=== PATIENT | male | born 1935 | race Caucasian/White ===

== ENCOUNTER 2019-09-05 14:40 | Outpatient (CLI) | payer MEDICARE, SELFPAY ==
--- NOTE | ~2019-09-05 | XR_ITS ---
EXAMINATION: XR hip BI wo pelvis EXAM DATE: 09/05/2019 15:29 INDICATION: Bilateral hip pain. No known recent injury provided at this time. TECHNIQUE: Each hip imaged independently (separate right and also left hip) crosstable lateral and ' frog-leg' and frontal projections for interpretation. There are no prior studies for comparison. FINDINGS: No radiographic evidence of hip avascular necrosis. There is mild symmetric bilateral hip primary osteoarthritis. There are no acute fractures or dislocations identified. There is no subcuta neous gas. Phleboliths. There are no radiopaque foreign bodies. IMPRESSION: Mild symmetric bilateral hip osteoarthritis. Reviewed, dictated and finalized at location A. CLUB SAFETY PROGRAM COORDINATOR
--- NOTE | ~2019-09-05 | XR_ITS ---
EXAMINATION: XR lumbar spine 6V w bending EXAM DATE: 09/05/2019 15:29 INDICATION: Low back and bilateral hip pain. TECHNIQUE: Lumber spine frontal, lateral, bilateral oblique projections. Coned down frontal and lat eral L5-S1 lumbar projections for interpretation. Additional lateral flexion and lateral extension p rojections obtained. There are no prior studies for comparison. FINDINGS: There is 4 mm anterolisthesis L4 on L5 on the lateral extension projection, increases to 7 mm on the flexion projection. Mild to moderate loss of this disc height. There is moderate to severe loss of the L3-4 disc height. Moderate disc disease L2-3 and mild at the other thoracolumbar levels. There is moderate to severe lumbar facet arthropathy. There is aortic arterial sclerosis. Mild lumbar levoscoliosis. Sacrum, sacroiliac joints, sacral arcuate lines are intact. Paraspinal soft tissue is unremarkable. IMPRESSION: 1. L4-5 grade 1 anterolisthesis, increase in subluxation on flexion. 2. Moderate to severe lumbar facet arthropathy and L3-4 disc disease. Reviewed, dictated and finalized at location A. COUNSELOR
== END 2019-09-05 14:41 | disposition home or self-care (01) ==
LOC: ANHIMG 14:50
PROVIDERS: PCP Family Medicine; Visit Provider Family Medicine
DX: G89.29 Other chronic pain (principal); M16.0 Bilateral primary osteoarthritis of hip; M51.36 Other intervertebral disc degeneration, lumbar region
CPT/HCPCS: 72114; 73521

== ENCOUNTER 2019-09-11 11:59 | Outpatient (CLI) | payer MEDICARE, SELFPAY ==
--- NOTE | ~2019-09-11 | XR_ITS ---
XR abdomen/kub 1V 09/11/2019 12:27 Indication: Right ureteral stone post lithotripsy. Procedure: KUB Comparison: Comparison to multiple prior studies sequentially, with oldest reviewed study dated 03/26. Findings: Interval passage of right ureteral stones. There are left renal stones. There are pelvic ph leboliths without significant change. Bowel gas pattern nonobstructive. Moderate colonic fecal loadin g. Moderate lumbar spondylosis with levoscoliosis. Impression: 1: Interval resolution of distal right ureteral stones. 2: Left nephrolithiasis. Reviewed, dictated and finalized at location A. Impression: 1: Interval resolution of distal right ureteral stones. 2: Left nephrolithiasis.
== END 2019-09-11 12:00 | disposition home or self-care (01) ==
LOC: ANHIMG 12:08
PROVIDERS: PCP Family Medicine; Visit Provider Urology
DX: N20.0 Calculus of kidney (principal)
CPT/HCPCS: 74018

== ENCOUNTER 2019-10-10 11:21 | Outpatient (CLI) | payer MEDICARE, SELFPAY ==
--- NOTE | ~2019-10-10 | XR_ITS ---
EXAMINATION: XR lumbar spine 6V w bending DATE: 10/10/2019 11:50 INDICATION: Low back pain. TECHNIQUE: 7 views of lumbar spine including flexion and extension views were obtained. COMPARISON: Lumbar spine radiographs 09/05/2019, CT abdomen and pelvis 03/26/2019 FINDINGS: There is 12 degrees levoscoliosis of lumbar spine. There is 4 mm anterolisthesis of L4 on L 5. There is no abnormal motion with flexion or extension. There is mild chronic anterior wedging of m ultiple thoracic vertebral bodies.. There is severely decreased disc height at L3-L4 and moderately d ecreased disc height at L2-L3 and L4-L5. There is multilevel facet joint osteoarthritis, severe on th e right at L2-L3 and L3-L4, left from L2-L3 through L5-S1. IMPRESSION: 1. Severe lumbar spondylosis. 2. Lumbar levoscoliosis. Reviewed, dictated and finalized at location A.
== END 2019-10-10 11:22 | disposition home or self-care (01) ==
PROVIDERS: PCP Family Medicine; Visit Provider Family Medicine
DX: M54.5 Low back pain (principal); M62.838 Other muscle spasm; M47.896 Other spondylosis, lumbar region
CPT/HCPCS: 72114

== ENCOUNTER 2019-10-17 11:31 | Outpatient (CLI) | payer MEDICARE, SELFPAY ==
--- NOTE | ~2019-10-17 | MR_ITS ---
EXAMINATION: MR lumbar spine wo con DATE: 10/17/2019 12:29 INDICATION: Low back pain. TECHNIQUE: Magnetic resonance imaging (MRI) of the lumbar spine was performed without intravenous con trast. Sequences included sagittal T2-weighted FSE, sagittal T2-weighted FS FSE, sagittal T1-weighted FSE, and axial T2-weighted FSE. COMPARISON: Lumbar spine radiographs 10/10/2019 FINDINGS: There is 11 degrees levoscoliosis of lumbar spine. There is 3 mm anterolisthesis of L4 on L 5. There are Schmorl's nodes at most levels. There is mildly decreased disc height at L1-L2, moderate ly decreased disc height at L2-L3, severely decreased disc height at L3-L4, and moderately decreased disc height at L4-L5. The distal spinal cord signal intensity is normal. The conus medullaris is at T 12-L1. The following disc levels are specifically discussed: L1-L2: The disc is mildly bulging. There is mild bilateral facet joint osteoarthritis. There is mild bilateral neural foraminal stenosis. There is mild central canal stenosis. L2-L3: The disc is bulging. There is severe bilateral facet joint osteoarthritis. There is mild bilat eral neural foraminal stenosis. There is mild central canal stenosis. L3-L4: The disc is bulging. There is severe bilateral facet joint osteoarthritis. There is moderate r ight and mild left neural foraminal stenosis. There is mild central canal stenosis. L4-L5: The disc is bulging. There is severe bilateral facet joint osteoarthritis. There is moderate b ilateral neural foraminal stenosis. There is moderate central canal stenosis. L5-S1: The disc is bulging. There is severe bilateral facet joint osteoarthritis. There is mild bilat eral neural foraminal stenosis. There is mild central canal stenosis. IMPRESSION: 1. Severe lumbar spondylosis. 2. Lumbar levoscoliosis. Reviewed, dictated and finalized at location A.
== END 2019-10-17 11:32 | disposition home or self-care (01) ==
PROVIDERS: PCP Family Medicine; Visit Provider Family Medicine
DX: M54.5 Low back pain (principal); M47.816 Spondylosis without myelopathy or radiculopathy, lumbar region; M41.86 Other forms of scoliosis, lumbar region
CPT/HCPCS: 72148

== ENCOUNTER 2019-11-07 10:22 | Outpatient (CLI) | payer MEDICARE, SELFPAY ==
--- NOTE | ~2019-11-07 | XR_ITS ---
XR abdomen/kub 1V 11/07/2019 10:40 Indication: Right ureteral stone Procedure: KUB Comparison: Comparison to multiple prior studies sequentially, with oldest reviewed study dated 01/2019. Findings: There is a punctate calcification in the right pelvis not seen on prior examination, suspic ious for 2 mm distal ureteral stone. There are left renal stones. There are multiple pelvic phlebolit hs. Bowel gas pattern is nonobstructive. Levoscoliosis centered at L3-4. Moderate lumbar spondylosis. Impression: 1: Suspected 2 mm distal right ureteral stone. Consider correlation with CT 2: Left nephrolithiasis. Reviewed, dictated and finalized at location A. Impression: 1: Suspected 2 mm distal right ureteral stone. Consider correlation with CT 2: Left nephrolithiasis.
== END 2019-11-07 10:23 | disposition home or self-care (01) ==
LOC: ANHIMG 10:25
PROVIDERS: PCP Family Medicine; Visit Provider Urology
DX: N20.1 Calculus of ureter (principal); N20.0 Calculus of kidney
CPT/HCPCS: 74018

== ENCOUNTER 2020-03-16 11:52 | Outpatient (CLI) | payer MEDICARE, SELFPAY ==
--- NOTE | ~2020-03-16 | XR_ITS ---
XR abdomen/kub 1V 03/16/2020 12:23 Indication: Right ureteral stone. Recent lithotripsy. Procedure: KUB Comparison: 06/04/2019 Findings: Bowel gas pattern is nonobstructive. There are left renal stones. There are pelvic phleboli ths. Moderate lumbar spondylosis with levoscoliosis. Impression: 1: Left nephrolithiasis. Reviewed, dictated and finalized at location B. Impression: 1: Left nephrolithiasis.
== END 2020-03-16 11:53 | disposition home or self-care (01) ==
LOC: ANHIMG 12:02
PROVIDERS: PCP Family Medicine; Visit Provider Urology
DX: N20.0 Calculus of kidney (principal)
CPT/HCPCS: 74018

== ENCOUNTER → 2020-11-06 00:29 | Outpatient (CLI) | payer MEDICARE, SELFPAY ==
[2020-11-06 18:42] LABS: SARS-CoV-2 RNA PCR Negative
== END ==
PROVIDERS: PCP Family Medicine; Visit Provider Specialist
DX: Z01.812 Encounter for preprocedural laboratory examination (principal); Z20.822 Contact with and (suspected) exposure to COVID-19
CPT/HCPCS: C9803; U0003; U0005

== ENCOUNTER 2020-11-09 00:56 | Day surgery (SDC) | payer MEDICARE, SELFPAY ==
[2020-11-06 14:26] VITALS: BMI 28.1
[2020-11-09] VITALS (22 sets, daily range): BP systolic 134–182; BP diastolic 49–74; PULSE 30–69; RESP 10–20; TEMP 36.5–36.6; O2SAT 97–100; BMI 28.1
--- NOTE | 2020-11-09 07:33 | ECG_ITS ---
Measurements Intervals [place] Rate: 28 P: [place]: 0 QRS: -47 QRSD: 170 T: -11 QT: 494 QTc: 341 Interpretive Statements SINUS BRADYCARDIA WITH 2ND DEGREE AV BLOCK, MOBITZ TYPE II RIGHT BUNDLE BRANCH BLOCK LEFT ANTERIOR FASCICULAR BLOCK ABNORMAL ECG Electronically Signed On 11-09-2020 8:18:20 CDT by Nii Dunbar D.O.
[2020-11-09 07:37] LABS: Basophils Percent Auto 0.4 % (0.2-1.2); Eosinophils Absolute Auto 0.2 K/mm3 (0-0.3); Eosinophils Percent Auto 3.6 % (0-4.4); Hematocrit 41.3 % (42.0-52.0); Hemoglobin 13.9 g/dL (14.0-18.0); Immature Granulocyte Absolute 0.03 K/mm3 (0.00-0.031); Immature Granulocyte Percent A 0.6 % (0-0.5); Lymphocytes Absolute Auto 1.47 K/mm3 (0.9-3.2); Lymphocytes Percent Auto 29.1 % (18.3-44.2); Mean Corpuscular HGB Conc 33.7 g/dl (32-36); Mean Corpuscular Hemoglobin 30.5 pg (26-34); Mean Corpuscular Volume 90.8 fl (80-100); Mean Platelet Volume 10.4 fl (7.4-10.4); Monocytes Absolute Auto 0.5 K/mm3 (0.1-0.6); Monocytes Percent Auto 8.9 % (2.6-8.5); Neutrophils Absolute Auto 2.9 K/mm3 (1.3-6.7); Neutrophils Percent Auto 57.4 % (45.5-73.1); Platelet Count Result 204 k/mm3 (150-375); Red Blood Count 4.55 M/mm3 (4.6-6.20); Red Cell Distribution Width 12.9 % (11.5-14.5); White Blood Count 5.1 K/mm3 (4.5-10.0)
[2020-11-09 07:46] LABS: Anion Gap 3 mmol/L (8-16); Blood Urea Nitrogen 19 mg/dL (9-20); Calcium 9.2 mg/dL (8.4-10.2); Carbon Dioxide 30 mmol/L (22-30); Chloride 105 mmol/L (98-107); Estimated CRCL calculation 44 ml/min; Estimated Glomerular Filt Rate > 60; Glucose 95 mg/dL (75-110); Sodium 138 mmol/L (137-145)
[2020-11-09 07:48] LABS: INR 0.9; Prothrombin Time 13.1 Seconds (11.1-14.7)
--- NOTE | 2020-11-09 08:51 | WPDMODSED ---
Moderate Sedation Note-Pt Data Patient Data Diagnosis: Coronary artery disease with previous PCI exertional fatigue second-degree AV block abnormal stress test Present Complaint: this is an 85-year-old man with coronary disease previous PCI who is reporting symptoms of decreasing exertional tolerance. A nuclear stress test was abnormal suggesting evidence of anteroseptal infarction which has not occurred in the past. Follow-up angiogram has been recommended for this reason. He is in second-degree AV block with 2-1 conduction. Procedure to be performed/Plan: Coronary angiogram left ventriculogram Allergies Allergy/AdvReac Type Severity Reaction Status Date / Time Penicillins Allergy Severe Swelling Verified 10/08/19 14:05 Home Medications Medication Instructions Recorded Confirmed Type aspirin 325 mg PO DAILY 05/02/19 10/08/19 History finasteride 5 mg PO DAILY 05/02/19 10/08/19 History zinc 0.5 mg PO DAILY 05/02/19 10/08/19 History hydrocodone-acetaminophen [[place]] 1 - 2 tablet PO Q8H PRN #20 tablet 05/10/19 10/08/19 Rx ferrous sulfate 325 mg (65 mg 325 mg PO DAILY 10/08/19 10/08/19 History iron) tablet atorvastatin 40 mg tablet 40 mg PO DAILY #90 tablet 06/29/20 Rx amlodipine 2.5 mg tablet 2.5 mg PO BID #180 tablet 07/29/20 Rx furosemide 20 mg tablet 20 mg PO DAILY #90 tablet 08/24/20 Rx diazepam 2 mg tablet 2 mg PO .QHS PRN #30 tablet 09/11/20 Rx Current Medications: Active Medications Sodium Chloride (Normal Saline Iv) 500 mls @ 100 mls/hr IV CONT .Q5H OTIS Sedation/Anesthesia: No previous sedation/anesthesia problems (including family history). [facility] Past Medical History Medical History (Updated 10/15/19 @ 15:53 by Malcolm Hernandez MD) CPAP (continuous positive airway pressure) dependence Hamstring tightness HTN (hypertension) Hyperlipidemia Leg muscle spasm Lumbar spondylosis NIKKI (obstructive sleep apnea) Renal stones Surgical History Surgical History History of coronary artery stent placement Family History Family History Father Family history of cardiac disorder Social History Social History Smoking status: Never smoker Alcohol intake: current Substance use: never Substance use type: does not use Living arrangements: with family Gender identity (if verbalized by the patient): Male Spiritual care concerns: No Mod Sed Physical Exam Physical Exam Pre Procedural Exam: Normal: Appearance, Throat, Airway, Lungs, Heart Size, Heart Rhythm, Neuro Exam and Extremities and Variation: Heart Rate ( bradycardic) Hours since solid foods: 12 Hours since liquid intake: 12 Internal Medicine - PN: Obj Da Vital Signs Vital Signs: Vital Signs - 24 hr 11/09/20 07:27 Pulse Rate 32 L Respiratory Rate 12 Blood Pressure 160/58 H Pulse Oximetry 100 Meds/Results Medications: Active Medications Generic Name Dose Route Start Last Admin Trade Name Freq PRN Reason Stop Dose Admin Sodium Chloride 500 mls @ 100 mls/hr 11/09/20 07:00 Normal Saline Iv IV CONT .Q5H [facility] Labs CBC & Chem 7: 11/09/20 07:29 11/09/20 07:29 Labs: Laboratory Results - last 24 hr 11/09/20 11/09/20 11/09/20 07:29 07:29 07:29 WBC 5.1 RBC 4.55 L Hgb 13.9 L Hct 41.3 L MCV 90.8 MCH 30.5 MCHC 33.7 RDW 12.9 Plt Count 204 MPV 10.4 Immature Gran % (Auto) 0.6 H Neut % (Auto) 57.4 Lymph % (Auto) 29.1 Person % (Auto) 8.9 H Eos % (Auto) 3.6 Baso % (Auto) 0.4 Lymph # (Auto) 1.47 Person # (Auto) 0.5 Eos # (Auto) 0.2 Baso # (Auto) 0.0 Abs Immat Gran (auto) 0.03 Absolute Neuts (auto) 2.9 Absolute Nucleated RBC 0.0 Nucleated RBC % 0.0 PT 13.1 INR 0.9 Sodium 138 Potassium 4.0 Chloride 105 Carbon Dioxide 30
--- NOTE | 2020-11-09 09:32 | WPDCARDPROC ---
Cardiac Cath Procedure Note Date of procedure:: 11/09/20 Performing physician:: Be Mcwilliams MD Indication:: Abnormal stress test previous coronary stent second-degree AV block Brief clinical history:: this is an 85-year-old man with coronary disease previous stenting of the proximal LAD as well as of the proximal circumflex. He has left coronary dominant circulation. He presented to the office recently reporting symptoms of exertional fatigue. Stress testing suggests evidence of previous anteroapical infarction which has not been known to occur in the past. In addition to this he is bradycardic and second-degree AV block initially Mobitz type 1 currently appears to have Mobitz type 2. Procedure Procedure performed:: Coronary angiography left ventriculography Sedation/Medication given:: no Sedation case start time 9:05 a.m. case end time 9:29 a.m. Access site:: right femoral artery Estimated blood loss:: 10-15 cc Procedure note:: patient was brought to the cardiac catheterization lab where the right femoral triangle was prepared and draped in the usual fashion. Anesthesia was provided with 1% lidocaine infiltrated locally. Using the modified Seldinger technique the right femoral artery was punctured and a 5 Nigerien vascular sheath was placed. After this left heart catheterization was carried out. I used a 5 Nigerien FL4 catheter to engage and inject the left coronary artery. I then used a 5 [place] JR4 catheter to engage and inject the right coronary artery. A 5 Nigerien angled pigtail catheter was used to measure left-sided hemodynamics and injected LV g in the DONOVAN projection. The cine angiograms were then reviewed the case was terminated the patient was taken to the holding area for manual sheath removal. Procedure was uncomplicated he left the cathode washer with no evidence of a groin hematoma. Findings:: hemodynamics: Central aortic pressure is 164 over 52 left ventricle 164 over to end-diastolic 18. No gradient seen on pullback across the aortic valve. Left ventricle: The LV is normal in size there is mild global hypocontractility global ejection fraction is estimated to be 40-45%. The left main coronary artery is short medium in caliber and patent the left anterior descending is a large caliber vessel extending down to around the apex. At the ostium the LAD has a 99% stenosis. After this there is visible stent material proximal LAD with modest loss of lumen but no functionally significant lesion is seen in the stent itself. The high-grade ostial lesion appears to be proximal to the stent material. The circumflex is a large caliber vessel which is dominant to the posterior circulation circumflex proximally has a stent visible with modest 30% stenosis in this segment. The 1st OM branch has a 99% lesion and is a medium-sized vessel. Conclusion:: 1. Severe 2 vessel coronary artery disease with subtotal ostial stenosis of the LAD the proximal margin of previously deployed stent material and high-grade 99% stenosis in the 1st OM branch of the circumflex. Left coronary artery is dominant and proximal circumflex stent has modest loss of lumen. 2. Very mildly reduced left ventricular systolic function 3. second-degree AV block appears to be Mobitz type 2 now with heart rate of 30 beats per minute and no syncopal symptoms. Be Mcwilliams MD [facility]
--- NOTE | 2020-11-09 15:23 | SUR.PHASEII ---
Patient up to chair, no signs of bleeding or hematoma, will continue to monitor, BP taken prior to ambulating, patient states a little dizzy but no more than usual.
[2020-11-09 18:40] LABS: Basophils Percent Auto 0.4 % (0.2-1.2); Eosinophils Absolute Auto 0.2 K/mm3 (0-0.3); Eosinophils Percent Auto 2.8 % (0-4.4); Hematocrit 41.3 % (42.0-52.0); Hemoglobin 13.7 g/dL (14.0-18.0); Immature Granulocyte Absolute 0.03 K/mm3 (0.00-0.031); Immature Granulocyte Percent A 0.5 % (0-0.5); Lymphocytes Absolute Auto 1.31 K/mm3 (0.9-3.2); Lymphocytes Percent Auto 22.9 % (18.3-44.2); Mean Corpuscular HGB Conc 33.2 g/dl (32-36); Mean Corpuscular Hemoglobin 30.3 pg (26-34); Mean Corpuscular Volume 91.4 fl (80-100); Mean Platelet Volume 10.4 fl (7.4-10.4); Monocytes Absolute Auto 0.4 K/mm3 (0.1-0.6); Monocytes Percent Auto 7.5 % (2.6-8.5); Neutrophils Absolute Auto 3.8 K/mm3 (1.3-6.7); Neutrophils Percent Auto 65.9 % (45.5-73.1); Platelet Count Result 214 k/mm3 (150-375); Red Blood Count 4.52 M/mm3 (4.6-6.20); White Blood Count 5.7 K/mm3 (4.5-10.0)
[2020-11-09] MEDS: HEPARIN SOD/D5W 100 UNITS/ML 25,000 UNITS/250 ML BAG 8 UNITS IV CONT (18:50)
[2020-11-09 19:01] LABS: Prothrombin Time 13.7 Seconds (11.1-14.7)
[2020-11-09 19:02] LABS: Partial Thromboplastin Time 31.2 SECONDS (22.3-36.8)
--- NOTE | 2020-11-09 19:11 | PC.NURSE ---
Per Dr grullon. Ok to turn low heart rate alarm parameters to 25
--- NOTE | 2020-11-09 21:27 | PC.NURSE ---
This patient, Rainer Starks, was admitted to IMU Room 203-01 at approximately 1600. Patient/family oriented to hospital policies and general routines including ID bracelet, bed and alarms, visiting hours, pain management, procedures, bathroom and other care routines, personal items, smoking policy, room service/diet, and visiting hours. Information on how to activate the Rapid Response Team has been discussed. Patient/Family are encouraged to report perceived risks to care and to ask questions if they do not understand what they are told or what they should do. Admission assessment done at 2127 by Sivan Gutierrez RN
[2020-11-10] VITALS: PULSE 25; O2SAT 98
[2020-11-10 01:26] LABS: Partial Thromboplastin Time 55.3 SECONDS (22.3-36.8)
--- NOTE | 2020-11-10 01:54 | PC.NURSE ---
Heparin infusion started by Vicky Mccollum RN on 11/09/2020 At 1850.
[2020-11-10] MEDS: HEPARIN SODIUM 5,000 UNITS/ML VIAL 3000 UNITS IV PUSH (01:59)
[2020-11-10 02:00] VITALS: PULSE 35
[2020-11-10 03:57] VITALS: BP 160/60; PULSE 31; RESP 18; TEMP 36.2; O2SAT 97
--- NOTE | 2020-11-10 04:55 | PC.NURSE ---
Patient was transferred to [facility], room 7355 on 11/10/20 at 0420.
== END 2020-11-10 04:20 | disposition short-term general hospital (02) ==
LOC: ANHCATHLAB 07:07 → ANHIMU 16:34
PROVIDERS: PCP Family Medicine; Visit Provider Specialist
PROC: 4A023N7 Measurement of Cardiac Sampling and Pressure, Left Heart, Percutaneous Approach (ICD-10-PCS; CPT 93452; principal; 2020-11-09 08:30)
DX: I25.10 Atherosclerotic heart disease of native coronary artery without angina pectoris (principal); R94.39 Abnormal result of other cardiovascular function study; I44.1 Atrioventricular block, second degree; Z95.5 Presence of coronary angioplasty implant and graft; I10 Essential (primary) hypertension; E78.5 Hyperlipidemia, unspecified; G47.33 Obstructive sleep apnea (adult) (pediatric); M47.816 Spondylosis without myelopathy or radiculopathy, lumbar region
CPT/HCPCS: 36415; 80048; 85025; 85610; 85730; 93005; 93458; C1887; C1894; J0461; J1644; J2250; J3010; J7030; J7040

== ENCOUNTER → 2020-12-11 03:37 | Outpatient (CLI) | payer MEDICARE, SELFPAY ==
[2020-12-11 19:50] LABS: SARS-CoV-2 RNA PCR Negative
== END ==
PROVIDERS: PCP Family Medicine; Visit Provider Specialist
DX: Z01.812 Encounter for preprocedural laboratory examination (principal); Z20.822 Contact with and (suspected) exposure to COVID-19
CPT/HCPCS: C9803; U0003; U0005

== ENCOUNTER 2020-12-14 00:42 | Day surgery (SDC) | payer MEDICARE, SELFPAY ==
[2020-12-11 16:13] VITALS: BMI 27.4
--- NOTE | 2020-12-14 07:22 | ECG_ITS ---
Measurements Intervals [place] Rate: 80 P: [place]: 0 QRS: 92 QRSD: 153 T: 128 QT: 436 QTc: 503 Interpretive Statements ELECTRONIC VENTRICULAR PACEMAKER UNDERLYING ATRIAL FLUTTER BASELINE ARTIFACT- III, AVL NO FURTHER INTERPRETATION IS POSSIBLE ABNORMAL ECG Electronically Signed On 12-14-2020 7:40:02 CDT by Nii Dunbar D.O.
[2020-12-14 07:28] VITALS: BP 132/89; PULSE 81; RESP 23; TEMP 35.7; O2SAT 100
[2020-12-14 07:54] LABS: Anion Gap 6 mmol/L (8-16); Blood Urea Nitrogen 17 mg/dL (9-20); Calcium 9.1 mg/dL (8.4-10.2); Carbon Dioxide 26 mmol/L (22-30); Chloride 108 mmol/L (98-107); Estimated CRCL calculation 44 ml/min; Estimated Glomerular Filt Rate > 60; Glucose 97 mg/dL (75-110); Magnesium 1.9 mg/dL (1.6-2.3); Potassium 4.1 mmol/L (3.4-5.0); Sodium 140 mmol/L (137-145)
--- NOTE | 2020-12-14 08:20 | WPDMODSED ---
Moderate Sedation Note-Pt Data Patient Data Diagnosis: Atrial flutter following coronary bypass grafting Recent pacemaker implantation in surgery because of AV block Present Complaint: No complaints Procedure to be performed/Plan: DC cardioversion Allergies Allergy/AdvReac Type Severity Reaction Status Date / Time Penicillins Allergy Severe Swelling Verified 11/25/20 10:36 Home Medications Medication Instructions Recorded Confirmed Type finasteride 5 mg PO DAILY 05/02/19 12/14/20 History furosemide 20 mg tablet 20 mg PO DAILY #90 tablet 08/24/20 12/14/20 Rx aspirin [Adult Low Dose Aspirin] 81 mg PO DAILY 11/09/20 12/14/20 History tamsulosin 0.4 mg PO HS 11/09/20 12/14/20 History sennosides 8.6 mg-docusate sodium 1 tab-cap PO QHS #30 tablet 11/23/20 12/14/20 Rx 50 mg tablet acetaminophen 325 mg tablet 650 mg PO Q6H PRN 11/25/20 12/14/20 History atorvastatin 40 mg tablet 80 mg PO DAILY tablet 11/25/20 12/14/20 History metoprolol succinate 25 mg 25 mg PO BID 11/25/20 12/14/20 History tablet,extended release 24 hr oxycodone 5 mg tablet 5 mg PO Q4H PRN 11/25/20 12/14/20 History potassium chloride 20 mEq 20 meq PO DAILY 11/25/20 12/14/20 History tablet,extended release multivitamin with folic acid 1 tablet PO DAILY 12/14/20 12/14/20 History Current Medications: Active Medications Sodium Chloride (Normal Saline Iv) 1,000 mls @ 30 mls/hr IV CONT .Q24H OTIS Sedation/Anesthesia: No previous sedation/anesthesia problems (including family history). [facility] Past Medical History Medical History BMI 27.0-27.9,adult CPAP (continuous positive airway pressure) dependence Hamstring tightness HTN (hypertension) Hyperlipidemia Leg muscle spasm Lumbar spondylosis NIKKI (obstructive sleep apnea) Renal stones Surgical History Surgical History History of coronary artery stent placement Family History Family History Father Family history of cardiac disorder Social History Social History Smoking status: Never smoker Second hand tobacco smoke exposure: No Alcohol intake: former Drinks per week: 1 Substance use: never Substance use type: does not use Living arrangements: with family Gender identity (if verbalized by the patient): Male Spiritual care concerns: No Mod Sed Physical Exam Physical Exam Pre Procedural Exam: Normal: Appearance, Neck, Throat, Airway, Lungs, Heart Size, Heart Rate, Heart Rhythm, Neuro Exam and Extremities Hours since solid foods: 12 Hours since liquid intake: 12 Internal Medicine - PN: Obj Da Vital Signs Vital Signs: Vital Signs - 24 hr 12/14/20 07:28 Temperature 35.7 C L Pulse Rate 81 Respiratory Rate 23 H Blood Pressure 132/89 Pulse Oximetry 100 Meds/Results Medications: Active Medications Generic Name Dose Route Start Last Admin Trade Name Freq PRN Reason Stop Dose Admin Sodium Chloride 1,000 mls @ 30 mls/hr 12/14/20 07:25 Normal Saline Iv IV CONT .Q24H OTIS Labs CBC & Chem 7: 12/14/20 07:40 Labs: Laboratory Results - last 24 hr 12/14/20 07:40 Sodium 140 Potassium 4.1 Chloride 108 H Carbon Dioxide 26 Anion Gap 6 L BUN 17 Creatinine 1.10 Estim Creat Clear Calc 44 Estimated GFR > 60 Glucose 97 Calcium 9.1 Magnesium 1.9 ASA Classification/Sedation ASA Classification/Sedation ASA Class: II Emergent: No Risks: Risks, benefits and alternatives explained and patient/family accepted plan for sedation. Patient re-evaluated immediately prior to sedation.
[2020-12-14 08:30] VITALS: BP 151/84; PULSE 80; RESP 20; O2SAT 100
--- NOTE | 2020-12-14 08:34 | P.PCNCC_ITS ---
Cardiac Cath Procedure Note Date of procedure:: 12/14/20 Performing physician:: Be Mcwilliams MD Indication:: Persistent atrial flutter Brief clinical history:: This is an 85-year-old man who recently underwent bypass grafting and implantation of a dual-chamber pacemaker for treatment of high-grade AV block and severe 2 vessel coronary artery disease with left dominant circulation. In the outpatient setting it was noted that he has developed atrial flutter and persistent fashion be. He is anticoagulated with apixaban. An attempt at restoring sinus rhythm electrically has been scheduled for this morning. Procedure Procedure performed:: DC cardioversion Sedation/Medication given:: Propofol 40 mg IV push Estimated blood loss:: No blood loss Procedure note:: Patient was brought to the cathode washer holding area in the postabsorptive state. The defibrillator patches were placed in the AP position. The device was synchronized at 200 joules. He was then bolus of propofol 1 dose of 40 mg provided excellent sedation he was then cardioverted with 200 joules x1 shock resulting in termination of atrial flutter and AV sequential pacing. Findings:: As above Conclusion:: Successful, uncomplicated DC cardioversion terminating atrial flutter and resulting in AV sequential paced rhythm in this patient also with history of AV node dysfunction and implantation of permanent dual-chamber pacemaker recently during his bypass operation Be Mcwliliams MD [facility]
[2020-12-14 08:35] VITALS: BP 121/73; PULSE 80; RESP 20; O2SAT 100
--- NOTE | 2020-12-14 08:35 | ECG_ITS ---
Measurements Intervals [place] Rate: 80 P: 108 MT: 177 QRS: 91 QRSD: 147 T: 108 QT: 426 QTc: 491 Interpretive Statements ELECTRONIC ATRIAL PACEMAKER ELECTRONIC VENTRICULAR PACEMAKER NO FURTHER INTERPRETATION IS POSSIBLE ATYPICAL ECG Electronically Signed On 12-14-2020 9:10:42 CDT by Nii Dunbar D.O.
[2020-12-14 08:45] VITALS: BP 121/73; PULSE 80; RESP 20; TEMP 35.7; O2SAT 100
[2020-12-14 09:00] VITALS: BP 126/71; PULSE 80; RESP 20; O2SAT 100
[2020-12-14 09:15] VITALS: BP 145/82; PULSE 80; RESP 20; TEMP 35.7; O2SAT 100
== END 2020-12-14 09:33 | disposition home or self-care (01) ==
PROVIDERS: PCP Family Medicine; Visit Provider Specialist
PROC: 5A2204Z Restoration of Cardiac Rhythm, Single (ICD-10-PCS; principal; 2020-12-14 08:30)
DX: I48.19 Other persistent atrial fibrillation (principal); Z79.82 Long term (current) use of aspirin; Z95.1 Presence of aortocoronary bypass graft; Z95.5 Presence of coronary angioplasty implant and graft; Z95.0 Presence of cardiac pacemaker; Z79.01 Long term (current) use of anticoagulants
CPT/HCPCS: 36415; 80048; 83735; 92960; 93005; J2704; J7030

== ENCOUNTER 2021-06-09 15:43 | Outpatient (CLI) | payer MEDICARE, SELFPAY ==
--- NOTE | ~2021-06-09 | US_ITS ---
EXAMINATION: US carotid duplex BI DATE: 06/09/2021 16:31 INDICATION: Loss of balance. Dizziness and giddiness. TECHNIQUE: Grayscale, color Doppler, and pulsed Doppler images of the cervical carotid arteries were obtained. The degree of vessel stenosis is placed in one of the following categories: normal, <50%, 5 0-69%, >=70% but less than near-occlusion, near-occlusion, or total occlusion. Note that percent sten osis relative to normal distal artery lumen diameter is indirectly measured from velocity measurement s as described by Michael, et al. Radiology 2003; 229:340-346. COMPARISON: CTA 04/15/2018 FINDINGS: RIGHT: The right common carotid artery (CCA) peak systolic velocity (PSV) is 65 cm/s. The right internal car otid artery (ICA) PSV is 53 cm/s. The right ICA end-diastolic velocity (EDV) is 18 cm/s. The right IC A/CCA PSV ratio is 0.8. Grayscale and color Doppler images yield an estimate of <50% diameter reducti on from plaque in the ICA. There is antegrade flow in the right vertebral artery. LEFT: The left CCA PSV is 69 cm/s. The left ICA PSV is 56 cm/s. The left ICA EDV is 20 cm/s. The left ICA/C CA PSV ratio is 0.8. Grayscale and color Doppler images yield an estimate of <50% diameter reduction from plaque in the ICA. There is antegrade flow in the left vertebral artery. IMPRESSION: 1. <50% stenosis in the right internal carotid artery. 2. <50% stenosis in the left internal carotid artery. Reviewed, dictated and finalized at location A. OMER SUPPORT ASSOCIATE
== END 2021-06-09 15:44 | disposition home or self-care (01) ==
LOC: ANHIMG 15:44
PROVIDERS: PCP Family Medicine; Visit Provider Nurse Practitioner Family
DX: R42 Dizziness and giddiness (principal); I65.23 Occlusion and stenosis of bilateral carotid arteries
CPT/HCPCS: 93880

== ENCOUNTER 2024-06-03 15:56 | Emergency (ER) | payer MEDICARE, SELFPAY ==
--- NOTE | 2024-06-03 16:06 | ED.URI ---
HPI - URI/Sore Throat General Chief Complaint: Upper Respiratory Infection Stated Complaint: cough and aching Time Seen by Provider: 06/03/24 16:06 Source: patient Mode of arrival: ambulatory Limitations: no limitations History of Present Illness HPI Narrative: Patient is an 88-year-old male who presents with cough and body aches for 3 days. States he was around his brother who had same symptoms last week. Denies any fever, chills, nausea, vomiting, diarrhea, sore throat. Has not taken anything for symptoms other than delsym for cough. Related Data Home Medications Medication Instructions Recorded Confirmed aspirin 81 mg tablet 81 mg PO DAILY 11/09/20 06/03/24 atorvastatin 40 mg tablet 80 mg PO DAILY 11/25/20 06/03/24 potassium chloride 20 mEq 20 meq PO DAILY 11/25/20 06/03/24 tablet,extended release multivitamin with folic acid 400 1 tablet PO DAILY 12/14/20 06/03/24 mcg tablet rivaroxaban 20 mg tablet (Xarelto) 20 mg PO QPM 12/14/20 06/03/24 finasteride 5 mg tablet 5 mg PO DAILY 06/02/21 06/03/24 Allergies Allergy/AdvReac Type Severity Reaction Status Date / Time Penicillins Allergy Severe Swelling Verified 06/03/24 16:12 sildenafil Allergy Mild Rash Verified 06/03/24 16:12 Review of Systems Review of Systems: All systems reviewed & are unremarkable except as noted in HPI and below Constitutional: Constitutional: Denies body ache(s), Denies chills, Denies fatigue, Denies fever(s), Denies headache(s), Denies malaise and Denies weakness Eyes: Eyes: Denies blurry vision, Denies itchy eyes and Denies loss of vision ENT: Denies otalgia, Denies headache(s), Denies nasal congestion, Denies sinus pain and Denies sore throat Cardiovascular: Cardiovascular: Denies chest pain, Denies irregular heart rhythm and Denies dyspnea Respiratory: Respiratory: Reports cough and Denies dyspnea Gastrointestinal: Gastrointestinal: Denies abdominal pain, Denies diarrhea, Denies nausea and Denies vomiting Musculoskeletal: Musculoskeletal: Denies back pain, Reports myalgias and Denies arthralgias Integumentary/Breasts: Skin/Breast: Denies pruritus and Denies rash Neurologic: Denies headache(s), Denies loss of vision and Denies weakness Psychiatric: Psychiatric: Reports no additional psychiatric complaints Endocrine: Endocrine: Denies fatigue Allergic/Immunologic: Allergic/Immunologic: Denies itchy eyes PMFSH Past Medical History Medical History BMI 26.0-26.9,adult BMI 27.0-27.9,adult BMI 28.0-28.9,adult BPH (benign prostatic hyperplasia) CPAP (continuous positive airway pressure) dependence H/O cardiac pacemaker Hamstring tightness HTN (hypertension) Hyperlipidemia Leg muscle spasm Lumbar spondylosis NIKKI (obstructive sleep apnea) Pacemaker Renal stones Surgical History Surgical History History of coronary artery stent placement Family History Family History Father Family history of cardiac disorder Pacemaker Mother Cerebrovascular accident Sibling Cerebrovascular accident Alzheimer's disease Social History Social History Smoking status: Never smoker Second hand tobacco smoke exposure: No Alcohol intake: former Drinks per week: 1 Substance use: never Substance use type: does not use Lack of Transportation: No Lack of Food: Never True Current Housing: I Have Housing Concerned About Future Housing: No Difficulty Paying Gas/Electric Bills: No Difficulty Paying for Meds: No Currently Unemployed: No Education: Trade/Vocational Certificate Difficulty w/ Childcare or Family Care: No Living arrangements: alone Additional living arrangements comments: 2021. 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 There is no relevant family history pertinent to the presenting complaint. Exam Const: General: cooperative, healthy appearing, comfortable, no acute distress and well nourished Nutritional Appearance: well nourished Orientation/consciousness: patient oriented x3 Limitations: no limitations HENMT: Head: normal to inspection, normocephalic and atraumatic Ears: hearing grossly normal bilaterally, external ears normal, TM's normal bilaterally, EAC's normal and no periauricular adenopathy Face/Nose/Sinus: Normal external nose present, Abnormal mucous membranes and turbinates present erythematous bilateral and diffuse, normal facial exam, sinuses nontender and face symmetric Face and sinus: normal facial exam, sinuses nontender and face symmetric Mouth: Yes Normal oral and palatal mucosa present, Yes lip normal, Yes tongue normal, Yes Normal salivary glands and ducts present, Yes oropharynx normal and Yes moist mucous membranes Teeth and gingiva: dentition normal Throat: posterior oropharynx normal, tonsils normal and uvula midline Eyes: General: appearance normal, both eyes and all related structures Alignment and Position: alignment normal and position normal Periorbital: periorbital findings normal Eyelids: eyelids normal Pupils: Equal, round and reactive pupils present Neck: Neck: normal visual inspection, full ROM, no lymphadenopathy and supple Chest: Chest palpation & inspection: normal inspection of the chest and normal palpation of entire chest wall Resp: Effort & Inspection: normal respiratory effort and able to speak in complete sentences Auscultation: clear to auscultation bilaterally, no crackles, no rales, no rhonchi and no wheezes Cardio: Rate: regular rate Rhythm: regular rhythm Heart sounds: S1 normal heart sound present and S2 normal heart sound present GI: Inspection: normal to inspection Skin: General skin exam: normal color and no rashes or lesions noted Neuro: General: patient oriented x3 and moves all extremities Cranial nerves: Yes Equal, round and reactive pupils present Speech: normal speech Gait exam (Neuro): Normal gait present Extrem: General: normal to inspection, full ROM and no edema Psych: Appearance: grossly normal and well kempt Mental Status: mental status grossly normal Speech and movement: Normal speech and movement present Affect: normal affect Attitude: cooperative Thought process: Normal thought process present Course Course Emergency Course: Patient is aware of diagnosis, understands and agrees to treatment plan. Anticipatory guidance given. Patient agrees to follow-up as directed and is aware of reasons to seek care at the emergency department. Portions of this record may have been created with voice recognition software Level of Care: Express Care Visit Vital Signs Vital signs: Vital Signs Temperature 36.6 C 06/03/24 16:10 Pulse Rate 65 06/03/24 16:10 Respiratory Rate 18 06/03/24 16:10 Blood Pressure 139/47 L 06/03/24 16:10 Pulse Oximetry 100 06/03/24 16:10 Oxygen Delivery Room Air 06/03/24 16:10 Temperature 36.6 C 06/03/24 16:16 Pulse Rate 65 06/03/24 16:16 Respiratory Rate 18 06/03/24 16:16 Blood Pressure 139/47 L 06/03/24 16:16 Pulse Oximetry 100 06/03/24 16:16 Oxygen Delivery Room Air 06/03/24 16:16 Reviewed MDM - URI/Sore Throat MDM Narrative Medical decision making narrative: Discharge instructions reviewed with patient, as well as provided in writing per nursing staff. The instructions also include specific and strict return/GO TO THE ER as well as f/u information. All questions have been answered, and the patient deny any further questions with discharge and discharge plan. Differential diagnosis considered: [place] virus, strep pharyngitis, allergic rhinitis, upper respiratory tract infection, sinusitis, rhinosinusitis, nasopharyngitis. viral pharyngitis, otitis media, otitis externa, otitis effusion, foreign body, cerumen impaction, viral syndrome, and influenza.? Exam findings show no acute concerns or changes; patient is non-toxic appearing and is in no distress.? Patient is appropriate for outpatient treatment and follow-up.? Medical Records Attestation: I reviewed the patient's medical records. Lab Data Attestation: I reviewed the patient's lab results. Labs: Lab Results 06/03/24 Range/Units 16:42 POC Influenza A Ag Negative (Negative) POC Influenza B Ag Negative (Negative) POC SARS CoV-2 Ag Negative (Negative) Discharge Plan Discharge Clinical Impression: Upper respiratory infection Qualifiers: URI type: unspecified viral URI Qualified Code(s): J06.9 - Acute upper respiratory infection, unspecified Patient Disposition: Home, Self-Care Condition: Stable Instructions: Upper Respiratory Infection (ED) Additional Instructions: Your Covid and flu are both negative. Use Tessalon Perles as needed for cough. Use albuterol inhaler with spacer. Your symptoms are likely due to a viral illness, which is not treated with antibiotics. Viral symptoms can be present for up to a few weeks. -Alternate Tylenol and Motrin per package directions for fever or pain. -Antihistamine medication such as Benadryl/Zyrtec at night and Claritin/Karime during the day can help improve symptoms. -Use Flonase twice a day for 5 days then daily to help reduce the inflammation and dry up your sinuses. -You can also use Sudafed behind the pharmacy counter(12 or 24 hour). Be sure to drink plenty of water with these medications at least 8 ounces with every dose and it is important to drink 8 to 10 glasses of water per day. Water is a natural decongestant -Eat and drink things that are easy to swallow, like tea or soup, or popsicles. -Oral rinses such as: Salt water gargles and/or may use topical anesthetic (eg. Chloraseptic spray) or lozenges to relieve dryness or throat pain). -Frequent hand washing or hand custom wood stair builder is one of the best ways to prevent spread of infection. -Using a vaporizer or humidifier at night will also help thin secretions and help with coughing up phlegm. -Follow up with primary care provider in 3-5 days if condition is not improving - For new or worsening symptoms go directly to the nearest ER Prescriptions: New (DME) Aerochamber MV Spacer See Rx Instructions .Route Qty: 1 0RF Rx Instructions: As directed benzonatate 100 mg capsule 100 mg PO BID PRN (Reason: cough) Qty: 14 0RF albuterol sulfate 90 mcg/actuation HFA aerosol inhaler 2 puff inhalation QID PRN (Reason: shortness of breath or wheezing) Qty: 6.7 0RF No Action nystatin 100,000 unit/gram powder 1 applic topical TID Qty: 30 0RF triamcinolone acetonide 0.5 % ointment 1 applic topical BID Qty: 60 0RF atorvastatin 40 mg tablet 80 mg PO DAILY potassium chloride 20 mEq tablet extended release 20 meq PO DAILY finasteride 5 mg tablet 5 mg PO DAILY aspirin 81 mg Tablet 81 mg PO DAILY multivitamin with folic acid 400 mcg Tablet 1 tablet PO DAILY Xarelto 20 mg Tablet 20 mg PO QPM furosemide 20 mg tablet 20 mg PO DAILY Qty: 90 2RF tamsulosin 0.4 mg capsule 0.4 mg PO HS Qty: 90 1RF metoprolol tartrate 25 mg tablet 25 mg PO BID Qty: 180 0RF Follow-up/Referrals: Malcolm Hernandez MD [Primary Care Provider] - 3 Days Time of Disposition: 16:53
[2024-06-03 16:10] VITALS: BP 139/47; PULSE 65; RESP 18; TEMP 36.6; O2SAT 100
[2024-06-03 16:16] VITALS: BP 139/47; PULSE 65; RESP 18; TEMP 36.6; O2SAT 100
[2024-06-03 16:47] VITALS: BP 130/67
[2024-06-03 17:04] LABS: EDCOVIDSCREEN Negative (Negative); EDINFLUASCREEN Negative (Negative); EDINFLUBSCREEN Negative (Negative)
== END 2024-06-03 16:47 | disposition home or self-care (01) ==
PROVIDERS: Emergency Provider Nurse Practitioner Family; PCP Family Medicine
DX: J06.9 Acute upper respiratory infection, unspecified (principal); Z20.822 Contact with and (suspected) exposure to COVID-19; I10 Essential (primary) hypertension; E78.5 Hyperlipidemia, unspecified; N40.0 Benign prostatic hyperplasia without lower urinary tract symptoms; G47.33 Obstructive sleep apnea (adult) (pediatric); Z95.0 Presence of cardiac pacemaker; Z95.5 Presence of coronary angioplasty implant and graft; Z79.82 Long term (current) use of aspirin; Z79.01 Long term (current) use of anticoagulants
CPT/HCPCS: 87426; 87804; 99213; G0463